=== PATIENT | female | born 1945 | race Caucasian/White ===

== ENCOUNTER 2025-01-02 10:58 | Outpatient (AMB) | payer OTHER, SELFPAY ==
--- NOTE | 2025-01-02 11:05 | A.OFFVIS_ITS ---
Vital Signs 01/02/25 11:06 Height 5 ft 2 in Weight 163 lb BMI 29.8 BP 119/74 Blood Pressure Location Lt brachial Position Sitting Respiration 16 Pulse 71 Pulse Source Pulse Oximeter Pulse Oximetry (%) 96 Oxygen Delivery Method Room Air Intake Visit Reasons: Degeneration of Intervertebral Disc Lumbar Region Vice President Quality Required: No Accompanied by: Grand Child Allergies ibuprofen Allergy (Mild, Verified 01/02/25 11:09) upset stomach HPI Comments Details: The patient is an 79-year-old female presenting with chronic low back pain radiating to the right leg. The pain has persisted for several years, with a history of lumbar spine surgeries performed over five years ago at [facility], involving decompression without hardware placement. Despite surgical intervention, the patient continues to experience significant pain, described as constant and debilitating, affecting her daily activities. The patient has been on various medications, including oxycodone, initially prescribed at 10 mg but adjusted to 5 mg due to concerns about dependency. She has also tried NSAIDs, muscle relaxants, and topical treatments with limited relief. In addition to pharmacological treatments, the patient has undergone epidural steroid injections, providing temporary relief for about one month. The patient reports that her pain significantly limits her mobility and daily activities, including her ability to care for her grandchild. She experiences tingling sensations in her right leg, extending to the ankle, but denies significant numbness or weakness. The patient has expressed a desire to explore further surgical opinions despite previous advice against additional surgeries due to her age and associated risks. She is awaiting repeat neurosurgical evaluation pending referral from her primary care doctor. Denies red flag symptoms including new loss of bowel, bladder or saddle anesthesia. - Onset: Pain has been present for several years. - Quality: Described as constant and debilitating. - Location: Originates in the lower back and radiates laterally down the right leg, reaching the ankle. - Exacerbating factors: Activity increases pain. - Relieving factors: Temporary relief from epidural steroid injections. - Interference: Limits mobility and daily activities, including caregiving. - Affect: Pain impacts mood, causing irritability and poor sleep. - Analgesia: Currently using oxycodone 5 mg, with limited relief. - Adverse Effects: Concerns about dependency on oxycodone. - Activities of Daily Living: Pain limits mobility and caregiving activities. - Aberrant Drug Related Behaviors: No evidence of misuse, but concerns about dependency. Review of Systems Narrative - Musculoskeletal: Reports chronic low back pain radiating to the right leg, tingling in the right leg. - Neurological: Denies significant numbness or weakness in the right leg. Physical Exam Exam Exam: General: awake, alert, oriented. Answers questions appropriately. Fully engaged in examination. Skin: warm, dry, intact HEENT: Normocephalic. Hearing intact. Cardiac: External chest normal in appearance. Respiratory: No cough, audible wheezing or stridor. Abdomen: without gross distension. MS: No obvious swelling or deformities. Able to stand on bilateral tiptoes and bilateral heels.? Able to transition from sit to stand unassisted. Ambulates with bilaterally normal heel strike and toe off SLR positive in the right Decreased lumbar range of motion Tenderness over midline lumbar vertebrae and lumbar paraspinal muscles right greater than left Valsalva negative Negative footdrop, negative clonus Neurological: Oriented to person, place, time and situation. Thought process intact. No gait abnormalities appreciated. Psychiatric: Appropriate mood and affect. Good judgment and insight. Vital Signs: Last Vital Signs Pulse 71 01/02/25 11:06 Resp 16 01/02/25 11:06 BP 119/74 01/02/25 11:06 Pulse Ox 96 01/02/25 11:06 Oxygen Delivery Method Room Air 01/02/25 11:06 BMI result Body Mass Index 29.8 Results Reviewed Results Reviewed: Records unavailable for review. Record release was signed and faxed to [facility] to obtain lumbar spine imaging including most recent MRI. Assessment & Plan Assessment & Plan (1) Post laminectomy syndrome: Code(s): M96.1 - Postlaminectomy syndrome, not elsewhere classified Category: Medical (2) Degenerative disc disease, lumbar: Code(s): M51.36 - Other intervertebral disc degeneration, lumbar region Category: Medical (3) Chronic pain syndrome: Code(s): G89.4 - Chronic pain syndrome Category: Medical (4) Lumbar spondylosis: Code(s): M47.816 - Spondylosis without myelopathy or radiculopathy, lumbar region Category: Medical Plan The plan involves obtaining the most recent MRI results from [facility] to evaluate the lumbar spine's current status and identify any changes since the last assessment. A follow up with neurosurgeon is recommended to explore surgical options per patient request, despite previous advice against further surgery due to age-related risks. Consideration of a spinal cord stimulator trial is advised, as it may provide significant pain relief by disrupting pain signals before committing to a permanent implant. The patient will receive a pamphlet on spinal cord stimulation to review the procedure and its potential benefits. Continued use of current medications, including oxycodone, is advised, with monitoring for any adverse effects or signs of dependency. Patient was informed and verbally consented to the use of an ambient scribe for clinic note documentation during this visit. Patient Instructions: - Continue taking oxycodone as prescribed, and monitor for any side effects. - Review the pamphlet on spinal cord stimulation to understand the procedure and its benefits. - Follow up with your primary care physician to obtain a referral for a neurosurgical consultation at the request. - Arrange for the most recent MRI results to be sent to our office for review. Coding Level of Care Code New Pt Level 4 (21934) Complex EM visit Add On G2211 Diagnoses Post laminectomy syndrome M96.1 Degenerative disc disease, lumbar M51.36 Chronic pain syndrome G89.4 Lumbar spondylosis M47.816
[2025-01-02 11:06] VITALS: BP 119/74; PULSE 71; RESP 16; O2SAT 96; BMI 29.8
--- OUTSIDE RECORDS SUMMARY | 2025-01-02 12:29 | XMS_ITS | Clinical Summary ---
Author Organization [facility] Address [address] [place] [id number] Care Team Providers Care City Engineer Name Role Phone Zabrina Ugalde MD Primary Care Provider [phone] Allergies No known active allergies Medications Medication Sig Dispensed Refills Start Date End Date Status DOK 100 MG capsule TK 1 C PO BID PRF CONSTIPATION 0 06/11/2018 Active fluticasone (FLOVENT HFA) 110 MCG/ACT inhaler Inhale 220 mcg into the lungs. 0 06/20/2018 Active furosemide (LASIX) 20 MG tablet TK 1 T PO D 1 06/11/2018 Active gabapentin (NEURONTIN) 300 MG capsule TK 1 C PO BID 1 07/12/2018 Active latanoprost (XALATAN) 0.005 % ophthalmic solution 1 drop. 0 Activ e loratadine (CLARITIN) 10 MG tablet TK 1 T PO D 1 06/13/2018 Active losartan (COZAAR) tablet 50 mg TAKE 1 TABLET BY MOUTH DAILY 0 07/22/2018 Active senna (SENOKOT) 8.6 MG TABS tablet TK 1 T PO QD 1 07/24/2018 Active ondansetron (ZOFRAN-ODT) 4 MG disintegrating tablet Take 4 mg by mouth. 0 09/03/2018 Active traMADol (ULTRAM) 50 MG tablet Take 50 mg by mouth. 0 09/23/2018 Active alendronate (FOSAMAX) tablet 70 mg TAKE 1 T PO EVERY 7 DAYS 1 10/04/2018 Active Multiple Vitamin (MULTI-VITAMIN) TK 1 T PO QD 1 11/08/2018 Active oxyCODONE (OXY-IR) 5 MG capsule TK 1 C PO Q 4 H PRF PAIN SCALE 4 - 6 0 12/05/2018 Active pantoprazole (PROTONIX) 40 MG tablet TK 1 T PO QD 4 10/11/2018 Active Calcium Carb-Cholecalciferol (CALCIUM-VITAMIN D) 600-400 MG-UNIT TABS TK 1 T PO BID WF 0 03/24/2019 Active Diclofenac Sodium 1 % GEL topical Place 4 g onto the skin. 0 03/21/2019 Active polyethylene glycol (MIRALAX) powder Take 17 g by mouth. 0 04/08/2019 Active albuterol (PROVENTIL HFA;VENTOLIN HFA) 108 (90 Base) MCG/ACT inhaler INHALE 2 PUFFS Q 4 H PRN FOR SHORTNESS OF BREATH AND WHEEZING 0 04/21/2019 Active cyclobenzaprine (FLEXERIL) 10 MG tablet Take 10 mg by mouth. 0 05/14/2019 Active linaclotide (LINZESS) 145 MCG CAPS Take 145 mcg by mouth. 0 02/03/2019 Active methocarbamol (ROBAXIN) 750 MG tablet Take 750 mg by mouth. 0 05/08/2019 Active HYDROmorphone (DILAUDID) 2 MG tablet Take 1 to 2 tabs every 4 hours as needed for pain 50 tablet 0 09/25/2019 Active dilTIAZem (CARDIZEM) 60 MG tablet TK 1 T PO QID 0 12/04/2019 Active Active Problems Problem Noted Date Diagnosed Date Postop check 10/09/2019 Shoulder impingement, right 06/03/2019 Subacromial bursitis of right shoulder joint Biceps tendinitis of right shoulder 10/01/2018 Poor sleep hygiene 08/01/2018 Obstructive sleep apnea 12/27/2017 Overview: Overview: [facility] Home Polysomnogram: Date 12/24/2017; AHI 12, Unclassified apneas 4; Obstructive apneas 20; Central apneas 4; Mixed apneas 0; hypopneas 47; average oxygen saturation 93% (lowest 79% without saturations <88% for 5% or more of study) [facility] [place] study. Date 02/09/2018 . SE 78 % SM 89 %; spent 31 % of the study in REM. On CPAP @ 10; RDI 0.9 (AHI 0.9), Central apneas 0; Obstructive apneas 0; Mixed apneas 0; hypopneas 1; RERAs 0; and, average oxygen saturation was 94%. For the entire study, PLMs ~36. - Obstructive Sleep Apnea - mild; mostly hypopneas and obstructive apneas; without sleep related hypoventilation by 2018 home polysomnogram. Tobacco abuse 10/15/2017 Asthma, mild persistent 07/06/2017 Overview: Overview: Per previous PCP problem list -chronic obstructive asthma, COPD; however PFTs 01/22/18 - no obstruction. Will change COPD dx to asthma Carpal tunnel syndrome, left 07/06/2017 Chronic constipation 07/06/2017 Chronic daily headache 07/06/2017 Chronic low back pain 07/06/2017 Colon polyp 07/06/2017 Depression 07/06/2017 Elevated LFTs 07/06/2017 Overview: Overview: GI referral Fatty liver 07/06/2017 Fibromyalgia 07/06/2017 GERD (gastroesophageal reflux disease) 8 History of Helicobacter pylori infection 018 Hypertension 07/06/2017 Nevus 07/06/2017 Overview: Overview: 1 cm non pigmented irregular papule alexys, R forehead Numbness of toes 07/06/2017 Osteoarthritis, multiple sites 07/06/2017 Overview: Overview: Both knees, shoulder, lumbar spine, Osteoporosis 07/06/2017 Psoriasis 07/06/2017 Stress incontinence 07/06/2017 Overview: Overview: Referred to UroGyn Venous insufficiency 07/06/2017 Overview: Overview: Support hose/compression stockings 20-30 mm Hg Family History Medical History Relation Name Comments Hypertension Father Relation Name Status Comments Father Social History Tobacco Use Types Packs/Day Years Used Date Smoking Tobacco: Former Cigarettes Q uit: 2018 Smokeless Tobacco: Never Alcohol Use Standard Drinks/Week Comments No 0 (1 standard drink = 0.6 oz pur e alcohol) Sex and Gender Information Value Date Recorded Sex Assigned at Not on file Gender Identity Not on file Sexual Orientation Not on file Job Start Date Occupation Industry Not on file Not on file Not on file Last Filed Vital Signs Vital Sign Reading Time Taken Comments Blood Pressure - - Pulse - - Temperature - - Respiratory Rate - - Oxygen Saturation - - Inhaled Oxygen Concentration - - Weight 71.2 kg (157 lb) 10/01/2018 9:55 AM EDT Height 157.5 cm (5' 2 ) 10/01/2018 9:55 AM EDT Body Mass Index 28.72 10/01/2018 9:55 AM EDT Plan of Treatment Health Maintenance Due Date Last Done Comments COVID-19 Vaccine (#1) 03/16/1946 Depression Screening 1955 Preventative Health Evaluation 09/13/1961 Shingrix-Zoster Vaccine (1 o f 2) 09/13/1993 Fall Risk Assessment 09/13/2008 Osteoporosis Screening (DEXA Scan) 09/13/2008 RSV Adult > 60+ Yrs or (1 - 1-dose 75+ series) 09/13/2018 Pneumococcal Vaccine (2 of 2 - PPSV23 or PCV20) 06/23/2019 04/28/2019 Influenza Vaccine (#1) 2024 0, 11/13/2017 DTap / Tdap / Td (2 - Td or Tdap) 04/28/2029 04/28/2019 Hepatitis B Vaccines Aged Out No long er eligible based on patient's age to complete this topic RSV Ped < 20 months Aged Out No longe r eligible based on patient's age to complete this topic Care Teams City Engineer Relationship Specialty Start Date End Date Zabrina Ugalde MD PCP - General Internal Medicine 08/05/18
--- OUTSIDE RECORDS SUMMARY | 2025-01-02 12:29 | XMS_ITS | Encounter Summary ---
Author Organization [facility] Address [address] [place] [id number] Phone Care Team Providers Care Custodial Maintenance Worker Name Role Phone Unavailable Primary Care Provider Unavailabl e Encounter Details Date Type Department Care Team (Late st Contact Info) Description 03/23/2022 Transcribe Orders Virtual Department [address] [place] [address] Jessenia Colin, [facility] [address] [place] [address] Other form of dyspnea Social History Tobacco Use Types Packs/Day Years Used Date Smoking Tobacco: Never Assessed Comments Unknown Sex and Gender Information Value Date Recorded Sex Assigned at Not on file Legal Sex Unknown 03/23/2022 7:19 AM EST Gender Identity Not on file Sexual Orientation Not on file documented as of this encounter Plan of Treatment Not on file documented as of this encounter Visit Diagnoses Diagnosis Other form of dyspnea documented in this encounter Additional Source Comments The information contained in this document represents components of the legal health record. It is not the complete legal health record.[facility]
--- OUTSIDE RECORDS SUMMARY | 2025-01-02 12:29 | XMS_ITS | Clinical Summary ---
Author Organization [facility] Address [address] [place] [address] Phone Care Team Providers Care Liaison Planner Name Role Phone Unavailable Primary Care Provider Unavailabl e Social History Tobacco Use Types Packs/Day Years Used Date Smoking Tobacco: Never Assessed Comments Unknown Sex and Gender Information Value Date Recorded Sex Assigned at Not on file Legal Sex Unknown 03/23/2022 7:19 AM EST Gender Identity Not on file Sexual Orientation Not on file Plan of Treatment Not on file Medical Devices Not on file Additional Source Comments The information contained in this document represents components of the legal health record. It is not the complete legal health record.[facility]
== END 2025-01-02 11:54 | disposition home or self-care (01) ==
LOC: HO.PMC 10:58
PROVIDERS: PCP Internal Medicine; Referring Provider Internal Medicine; Visit Provider Registered Nurse Emergency
DX: M96.1 Postlaminectomy syndrome, not elsewhere classified (principal); M51.369 Other intervertebral disc degeneration, lumbar region without mention of lumbar back pain or lower extremity pain; G89.4 Chronic pain syndrome; M47.816 Spondylosis without myelopathy or radiculopathy, lumbar region
CPT/HCPCS: 99204; G2211

== ENCOUNTER → 2025-01-02 10:58 | Outpatient (BNVA) | payer OTHER, SELFPAY | PROVIDERS: PCP Internal Medicine; Referring Provider Internal Medicine; Visit Provider Registered Nurse Emergency | DX: M47.816 Spondylosis without myelopathy or radiculopathy, lumbar region (principal); G89.4 Chronic pain syndrome; M51.360 Other intervertebral disc degeneration, lumbar region with discogenic back pain only; M96.1 Postlaminectomy syndrome, not elsewhere classified | CPT/HCPCS: 99202 ==